=== PATIENT | male | born 1925 | race Caucasian/White ===

== ENCOUNTER 2016-12-07 11:25 | Emergency (ER) | payer OTHER ==
[~2016-12-07] VITALS: Ht 177.8 cm; Wt 85.0 kg
[2016-12-07 12:27] LABS: HEMATOCRIT 36.4 % (38.0-50.0); MCH 27.9 PG (29.0-34.0); MCHC 32.7 G/DL (30.0-36.0); MCV 85.4 FL (86-99); MEAN PLAT.VOLUME 10.4 uM^3 (9.0-12.4); PLATELET COUNT 135 K/uL (156-360); RBC DIS.WIDTH-CV 14.2 % (11.8-14.6); RBC DIS.WIDTH-SD 43.9 % (39-53); RED BLOOD COUNT 4.26 M/uL (4.00-5.50)
[2016-12-07 12:35] LABS: CHLORIDE 106 mEq/L (99-109); POTASSIUM 4.4 mEq/L (3.7-5.4); SODIUM 139 mEq/L (136-147)
[2016-12-07 12:36] LABS: GLUCOSE 98 mg/dL (70-99)
[2016-12-07 12:38] LABS: ANION GAP 10 MEQ/L (2-14)
[2016-12-07 12:40] LABS: GFR ESTIMATE (CALCULATED) 51 mL/min/
[2016-12-07 12:41] LABS: UREA NITROGEN (BUN) 17 mg/dL (9-23)
[2016-12-07] MEDS ORDERED: METOPROLOL SUCC50 MG PO (14:59)
[2016-12-07] MEDS ORDERED: LISINOPRIL2.5 MG PO (14:59)
[2016-12-07] MEDS ORDERED: KEFLEX500 MG PO (16:18)
[2016-12-07] MEDS ORDERED: BACTRIM,SEPT1 TABLET PO (16:18)
[2016-12-07 16:53] VITALS: BP 139/57
== END 2016-12-07 16:54 | disposition home or self-care (01) ==
LOC: EME 11:25
PROVIDERS: Emergency Medicine
DX: L03.115 Cellulitis of right lower limb (principal)
CPT/HCPCS: 80048; 83605; 85027; 87040; 93971; 99281; 99284